=== PATIENT | female | born 1935 | race Caucasian/White ===

== ENCOUNTER 2017-06-29 12:21 | Inpatient (IN) | payer MEDICARE, OTHER ==
[2017-06-29] MEDS ORDERED: MAGNESIUM HYDROXIDE 2400 MG PO PRN (17:20)
[2017-06-29] MEDS ORDERED: MEDICATION INTERVENTION MC PRN (17:30)
[2017-06-29] MEDS ORDERED: MILK OF MAGNESIA 30 ML PO PRN (17:32)
[2017-06-29] MEDS: Glucophage 500 MG PO SCH (18:31)
--- NOTE | 2017-06-29 18:37 | PCM.HP ---
History of Present Illness - Chief Complaint Chief Complaint: deconditioning r/t TKR Date: 06/29/17 History of Present Illness: is a 81 year old female. who had TKA right knee 3 days ago at [facility] with Dr. Guerrier. They tried to D/C the catheter but she was not able to urinate so restarted catheter however the bladder scan only showed 125 mL of urine in the bladder it was not documented the residual after the catheter was placed. She has some chronic difficulty with urination and had a bladder sling in 2013. Sugars are generally fairly well controlled. She has not had BM since surgery pain medicine made her feel bad at [facility] PCP Dr. Perales - Review of Systems Constitutional: No Fever, No Chills Eyes: No Symptoms Ears, Nose, & Throat: No Symptoms Respiratory: No Cough, No Short Of Breath Cardiac: No Chest Pain, No Edema, No Syncope Abdominal/Gastrointestinal: No Abdominal Pain, No Nausea, No Vomiting, No Diarrhea Genitourinary Symptoms: No Flank Pain Musculoskeletal: Joint Pain, No Back Pain, No Neck Pain Skin: No Rash Neurological: No Dizziness, No Focal Weakness, No Sensory Changes Psychological: No Symptoms Endocrine: No Symptoms Hematologic/Lymphatic: No Symptoms Immunological/Allergic: No Symptoms Medications & Allergies Home Medications: Home Medication List Liraglutide [Victoza 2-Ryan] 1.8 mg SQ DAILY 02/16/14 [History Confirmed 06/29/17 ] Potassium Chloride 10 Meq Tab* [Klor Con 10 MEQ] 10 meq PO DAILY 02/16/14 [ History Confirmed 06/29/17] Acetaminophen [Pain Reliever] 650 mg PO Q4HPRN PRN 06/29/17 [History Confirmed 06/29/17] Ascorbic Acid 500 mg [Vitamin C 500 MG] 500 mg PO DAILY 06/29/17 [History Confirmed 06/29/17] Aspirin 325 mg PO DAILY 06/29/17 [History Confirmed 06/29/17] Atorvastatin Calcium [Lipitor] 10 mg PO HS 06/29/17 [History Confirmed 06/29/17] Ferrous Sulfate 325 mg PO BID 06/29/17 [History Confirmed 06/29/17] Folic Acid 1 mg PO DAILY 06/29/17 [History Confirmed 06/29/17] Hydrocodone Bit/Acetaminophen [Hydrocodon-Acetaminophen 5-325] 1 each PO [id number] PRN 06/29/17 [History Confirmed 06/29/17] Levothyroxine Sodium 25 Mcg [Synthroid 25 Mcg] 25 mcg PO DAILY 06/29/17 [ History Confirmed 06/29/17] Lisinopril 20 mg PO DAILY 06/29/17 [History Confirmed 06/29/17] Magnesium Hydroxide [Milk of Magnesia] 2,400 mg PO HSPRN PRN 06/29/17 [History Confirmed 06/29/17] Metformin HCl [Glucophage] 1,000 mg PO BID 06/29/17 [History Confirmed 06/29/17] Naproxen 375 mg PO BID 06/29/17 [History Confirmed 06/29/17] [place]-3 Fatty Acids/Fish Oil [Fish Oil 1,200 mg Softgel] 1 each PO TID 06/29/17 [History Confirmed 06/29/17] Sennosides/Docusate Sodium [Senna-Docusate Sodium Tablet] 2 each PO HS 06/29/17 [History Confirmed 06/29/17] Torsemide [Demadex] 10 mg PO DAILY 06/29/17 [History Confirmed 06/29/17] Allergies/Adverse Reactions: Allergies Allergy/AdvReac Type Severity Reaction Status Date / Time Penicillins Allergy Severe Hives Verified 06/29/17 18:35 cephalexin monohydrate Allergy Mild Nausea Verified 06/29/17 18:35 [From Keflex] ciprofloxacin [From Cipro] Allergy Mild Nausea Verified 06/29/17 18:35 erythromycin base Allergy Mild Nausea Verified 06/29/17 18:35 Sulfa (Sulfonamide Allergy Mild Nausea Verified 06/29/17 18:35 Antibiotics) - Past Medical History Past Medical History: Yes Neurological History: No Pertinent History ENT History: Cataracts Cardiac History: High Cholesterol, Hypertension Respiratory History: No Pertinent History Endocrine Medical History: Diabetes Type II, Hypothyroidism Musculoskelatal History: No Pertinent History GI Medical History: No Pertinent History History: No Pertinent History Pyscho-Social History: No Pertinent History Reproductive Disorders: No Pertinent History Comment: Anemia - Female History Are you now?: No - Past Surgical History Past Surgical History: Yes Neuro Surgical History: No Pertinent History Cardiac History: No Pertinent History Respiratory Surgery: No Pertinent History GI Surgical History: Cholecystectomy Genitourinary Surgical Hx: No Pertinent History Musculskeletal Surgical Hx: Joint Replacement (Right knee ) Female Surgical History: Hysterectomy (total) Other Surgical History: bladder sling - Social History Smoking Status: Former smoker (Quit at age 31) Exposure to second hand smoke: No Alcohol: None Drug Use: none Significant Family History: cancer, diabetes, other (Daughter with DVT during ; Sister breast cancer; Mother Melanoma; Father Diabetes) - Physical Exam Vital Signs: Vital Signs - 24 hr Temp Pulse Resp BP Pulse Ox 06/29/17 16:28 97.3 F 78 16 167/69 95 06/29/17 16:13 97.3 F 78 16 167/69 95 06/29/17 16:00 97.3 F 78 16 167/69 95 General Appearance: no apparent distress, alert Neurologic Exam: alert, oriented x 3, cooperative, normal mood/affect, nml cerebellar function, sensation nml, No motor deficits Eye Exam: PERRL/EOMI, eyes nml inspection Ears, Nose, Throat Exam: normal ENT inspection, pharynx normal, moist mucous membranes Neck Exam: normal inspection, non-tender, supple, full range of motion Respiratory Exam: normal breath sounds, lungs clear, No respiratory distress Cardiovascular Exam: regular rate/rhythm, normal heart sounds, normal peripheral pulses Gastrointestinal/Abdomen Exam: soft, normal bowel sounds, No tenderness, No mass Back Exam: normal inspection, normal range of motion, No CVA tenderness, No vertebral tenderness Extremity Exam: normal inspection, normal range of motion, pelvis stable, other (right knee mild swelling bandage in place clean and dry normal peripheral perfusion) Skin Exam: normal color, warm, dry, No rash Lymphatic Exam: No adenopathy Results - Labs Lab/Micro Results: 06/28/17: Creat 0.81 BUN 15; wbc 12.5; hgb 9.5; plt 279 Assessment/Plan (1) Total knee replacement status Current Visit: Yes Status: Acute Qualifiers: Laterality: right Qualified Code(s): Z96.651 - Presence of right artificial knee joint Assessment & Plan: continue PT as ordered she has great rehab potential doing well plan to rehab to home with her Code(s): Z96.659 - PRESENCE OF UNSPECIFIED ARTIFICIAL KNEE JOINT (2) Constipation Current Visit: Yes Status: Acute Assessment & Plan: use the docusate senna opiates using less now add increased laxative prn Code(s): K59.00 - CONSTIPATION, UNSPECIFIED (3) Postoperative urinary retention Current Visit: Yes Status: Acute Assessment & Plan: will try to get the bowels moving and try removing Montejo again possibly on Sunday for voiding trial she has appt with urology but not until 07/18 she had bladder sling in 2013 Code(s): N99.89 - OTH POSTPROCEDURAL COMPLICATIONS AND DISORDERS OF SYS; R33.8 - OTHER RETENTION OF URINE (4) Type 2 diabetes mellitus Current Visit: Yes Status: Chronic (5) Hypothyroid Current Visit: Yes Status: Chronic Code(s): E03.9 - HYPOTHYROIDISM, UNSPECIFIED (6) Hypertension Current Visit: Yes Status: Chronic Code(s): I10 - ESSENTIAL (PRIMARY) HYPERTENSION (7) Anemia Current Visit: Yes Status: Chronic Code(s): D64.9 - ANEMIA, UNSPECIFIED
[2017-06-29] MEDS: FISH OIL 1,000 MG CAPSULE PO SCH (21:56)
[2017-06-29] MEDS: Zocor 10MG PO SCH (21:56)
[2017-06-29] MEDS: FEOSOL 325 MG PO SCH (21:56)
[2017-06-29] MEDS: Senokot-S Tablet PO SCH (21:57)
[2017-06-29] MEDS ORDERED: OMEGA PO SCH (22:00)
[2017-06-29] MEDS ORDERED: FISH OIL PO SCH (22:00)
[2017-06-29] MEDS ORDERED: NON-FORMULARY ITEM (Metformin Hcl [Glucophage] 1,000 MG) PO SCH (22:00)
[2017-06-29] MEDS ORDERED: FATTY ACIDS PO SCH (22:00)
[2017-06-29] MEDS ORDERED: NON-FORMULARY ITEM (Atorvastatin Calcium [Lipitor] 10 MG) PO SCH (22:00)
[2017-06-30] MEDS: Glucophage 500 MG PO SCH ×2 (07:54→17:23)
[2017-06-30] MEDS: NAPROSYN 375 MG PO SCH ×2 (07:54→17:23)
[2017-06-30] MEDS: FISH OIL 1,000 MG CAPSULE PO SCH ×3 (09:48→22:27)
[2017-06-30] MEDS: SYNTHROID 25 MCG PO SCH (09:49)
[2017-06-30] MEDS: FEOSOL 325 MG PO SCH ×2 (09:49→22:27)
[2017-06-30] MEDS: Klor Con 10 MEQ PO SCH (09:49)
[2017-06-30] MEDS: FOLATE 1 MG PO SCH (09:49)
[2017-06-30] MEDS: Vitamin C 500 MG PO SCH (09:49)
[2017-06-30] MEDS: Zestril 20 MG PO SCH (09:49)
[2017-06-30] MEDS: DEMADEX 20 MG PO SCH (09:50)
[2017-06-30] MEDS ORDERED: NON-FORMULARY ITEM (Aspirin [Aspirin] 325 MG) PO SCH (10:00)
[2017-06-30] MEDS ORDERED: Aplisol ID SCH (10:00)
[2017-06-30] MEDS ORDERED: NON-FORMULARY ITEM (Torsemide [Demadex] 10 MG) PO SCH (10:00)
[2017-06-30] MEDS: Ecotrin 325 MG PO SCH (12:34)
[2017-06-30 13:19] LABS: Bilirubin NEGATIVE (NEGATIVE); Collection Type CATH; Glucose NEGATIVE (NEGATIVE); Leukocyte Esterase 1+ (NEGATIVE)
[2017-06-30 13:20] LABS: Blood 50 Ery/ul (0-5); COMPLETE URINE MICROSCOPIC? YES
[2017-06-30 13:43] LABS: ADD URINE CULTURE? YES (NO); Bacteria FEW /HPF (NEGATIVE); Epithelial Cells FEW /HPF (FEW)
[2017-06-30] MEDS: PATIENT OWN MEDICATION SQ SCH (17:25)
[2017-06-30] MEDS: NORCO 5/325 MG PO PRN (22:26)
[2017-06-30] MEDS: Zocor 10MG PO SCH (22:27)
[2017-06-30] MEDS: Senokot-S Tablet PO SCH (22:27)
[2017-07-01] MEDS: Glucophage 500 MG PO SCH ×2 (08:41→16:43)
[2017-07-01] MEDS: NAPROSYN 375 MG PO SCH ×2 (08:42→16:43)
[2017-07-01] MEDS: Zestril 20 MG PO SCH (10:21)
[2017-07-01] MEDS: SYNTHROID 25 MCG PO SCH (10:21)
[2017-07-01] MEDS: FOLATE 1 MG PO SCH (10:21)
[2017-07-01] MEDS: Ecotrin 325 MG PO SCH (10:21)
[2017-07-01] MEDS: Vitamin C 500 MG PO SCH (10:21)
[2017-07-01] MEDS: FEOSOL 325 MG PO SCH ×2 (10:21→21:22)
[2017-07-01] MEDS: Klor Con 10 MEQ PO SCH (10:21)
[2017-07-01] MEDS: DEMADEX 20 MG PO SCH (10:23)
[2017-07-01] MEDS: FISH OIL 1,000 MG CAPSULE PO SCH ×3 (10:24→21:22)
[2017-07-01] MEDS: PATIENT OWN MEDICATION SQ SCH (16:48)
[2017-07-01] MEDS: Zocor 10MG PO SCH (21:22)
[2017-07-01] MEDS: Senokot-S Tablet PO SCH (21:22)
[2017-07-02] MEDS: TYLENOL 325 MG PO PRN ×2 (04:47→13:08)
[2017-07-02] MEDS: NAPROSYN 375 MG PO SCH ×2 (08:09→17:10)
[2017-07-02] MEDS: Glucophage 500 MG PO SCH ×2 (08:09→17:10)
[2017-07-02] MEDS ORDERED: Desyrel 150 MG PO PRN (09:31)
[2017-07-02] MEDS: Zestril 20 MG PO SCH (09:52)
[2017-07-02] MEDS: FISH OIL 1,000 MG CAPSULE PO SCH ×2 (09:52→13:57)
[2017-07-02] MEDS: Ecotrin 325 MG PO SCH (09:52)
[2017-07-02] MEDS: Vitamin C 500 MG PO SCH (09:52)
[2017-07-02] MEDS: Klor Con 10 MEQ PO SCH (09:52)
[2017-07-02] MEDS: FEOSOL 325 MG PO SCH (09:53)
[2017-07-02] MEDS: FOLATE 1 MG PO SCH (09:53)
[2017-07-02] MEDS: SYNTHROID 25 MCG PO SCH (09:53)
[2017-07-02] MEDS: DEMADEX 20 MG PO SCH (09:53)
[2017-07-02] MEDS: ZOFRAN ODT 4 MG PO PRN (15:37)
[2017-07-02] MEDS: PATIENT OWN MEDICATION SQ SCH (17:12)
[2017-07-02] MEDS: Senokot-S Tablet PO SCH (21:06)
[2017-07-02] MEDS: Zocor 10MG PO SCH (21:06)
[2017-07-03] MEDS: NORCO 5/325 MG PO PRN ×2 (03:03→22:48)
[2017-07-03] MEDS: NAPROSYN 375 MG PO SCH ×2 (08:06→17:06)
[2017-07-03] MEDS: Glucophage 500 MG PO SCH ×2 (08:06→17:05)
[2017-07-03] MEDS: SYNTHROID 25 MCG PO SCH (10:44)
[2017-07-03] MEDS: Zestril 20 MG PO SCH (10:44)
[2017-07-03] MEDS: Klor Con 10 MEQ PO SCH (10:44)
[2017-07-03] MEDS: Vitamin C 500 MG PO SCH (10:45)
[2017-07-03] MEDS: Ecotrin 325 MG PO SCH (10:45)
[2017-07-03] MEDS: DEMADEX 20 MG PO SCH (10:46)
[2017-07-03] MEDS: PATIENT OWN MEDICATION SQ SCH (17:06)
[2017-07-03] MEDS: Senokot-S Tablet PO SCH (22:05)
[2017-07-03] MEDS: Zocor 10MG PO SCH (22:06)
[2017-07-04] MEDS: Glucophage 500 MG PO SCH ×2 (08:37→16:51)
[2017-07-04] MEDS: NAPROSYN 375 MG PO SCH ×2 (08:37→16:51)
[2017-07-04] MEDS: ZOFRAN ODT 4 MG PO PRN (09:01)
[2017-07-04] MEDS: SYNTHROID 25 MCG PO SCH (11:25)
[2017-07-04] MEDS: DEMADEX 20 MG PO SCH (11:25)
[2017-07-04] MEDS: Zestril 20 MG PO SCH (11:25)
[2017-07-04] MEDS: Ecotrin 325 MG PO SCH (11:28)
[2017-07-04] MEDS: Vitamin C 500 MG PO SCH (11:29)
[2017-07-04] MEDS: Klor Con 10 MEQ PO SCH (11:29)
[2017-07-04] MEDS: PATIENT OWN MEDICATION SQ SCH (17:38)
[2017-07-04] MEDS: Zocor 10MG PO SCH (21:13)
[2017-07-04] MEDS: Senokot-S Tablet PO SCH (21:15)
[2017-07-04] MEDS: Requip 0.5 MG PO SCH (21:16)
[2017-07-05] MEDS: Requip 0.5 MG PO SCH (02:16)
[2017-07-05] MEDS: ZOFRAN ODT 4 MG PO PRN (02:59)
[2017-07-05] MEDS: Glucophage 500 MG PO SCH ×2 (07:20→16:55)
[2017-07-05] MEDS: NAPROSYN 375 MG PO SCH ×2 (07:23→16:55)
[2017-07-05] MEDS: Klor Con 10 MEQ PO SCH (10:45)
[2017-07-05] MEDS: Ecotrin 325 MG PO SCH (10:45)
[2017-07-05] MEDS: DEMADEX 20 MG PO SCH (10:45)
[2017-07-05] MEDS: Vitamin C 500 MG PO SCH (10:46)
[2017-07-05] MEDS: Zestril 20 MG PO SCH (10:46)
[2017-07-05] MEDS: SYNTHROID 25 MCG PO SCH (10:46)
[2017-07-05] MEDS: PATIENT OWN MEDICATION SQ SCH (16:55)
[2017-07-05] MEDS: Zocor 10MG PO SCH (22:16)
[2017-07-05] MEDS: Senokot-S Tablet PO SCH (22:16)
[2017-07-06] MEDS: ZOFRAN ODT 4 MG PO PRN (04:09)
[2017-07-06 07:33] VITALS: BP 139/70; PULSE 78
[2017-07-06] MEDS: NAPROSYN 375 MG PO SCH (07:59)
[2017-07-06] MEDS: Zestril 20 MG PO SCH (08:03)
[2017-07-06] MEDS: DEMADEX 20 MG PO SCH (08:03)
[2017-07-06] MEDS: SYNTHROID 25 MCG PO SCH (08:03)
[2017-07-06] MEDS: Glucophage 500 MG PO SCH (08:03)
[2017-07-06] MEDS: Ecotrin 325 MG PO SCH (08:04)
[2017-07-06] MEDS: Klor Con 10 MEQ PO SCH (08:05)
[2017-07-06] MEDS: Vitamin C 500 MG PO SCH (08:05)
[2017-07-06 11:40] VITALS: O2SAT 98
--- NOTE | 2017-07-06 11:56 | PCM.DCORD ---
- Discharge Discharge Date: 07/06/17 Disposition: Home, Self-Care Condition: Stable Prescriptions: Continue Potassium Chloride 10 Meq Tab* [Klor Con 10 MEQ] 10 meq PO DAILY Liraglutide [Victoza 2-Ryan] 1.8 mg SQ DAILY [place]-3 Fatty Acids/Fish Oil [Fish Oil 1,200 mg Softgel] 1 each PO TID Naproxen 375 mg PO BID Metformin HCl [Glucophage] 1,000 mg PO BID Magnesium Hydroxide [Milk of Magnesia] 2,400 mg PO HSPRN PRN PRN Reason: Constipation Lisinopril 20 mg PO DAILY Levothyroxine Sodium 25 Mcg [Synthroid 25 Mcg] 25 mcg PO DAILY Hydrocodone Bit/Acetaminophen [Hydrocodon-Acetaminophen 5-325] 1 each PO [id number] PRN PRN Reason: Pain Folic Acid 1 mg PO DAILY Ferrous Sulfate 325 mg PO BID Sennosides/Docusate Sodium [Docusate Sodium-Senna Tablet] 2 each PO HS Atorvastatin Calcium [Lipitor] 10 mg PO HS Ascorbic Acid 500 mg [Vitamin C 500 MG] 500 mg PO DAILY Acetaminophen [Pain Reliever] 650 mg PO Q4HPRN PRN PRN Reason: pain/fever Torsemide [Demadex] 10 mg PO DAILY Aspirin EC 81 mg [Ecotrin 81 mg] 81 mg PO DAILY Instructions: Knee Replacement Additional Instructions: CONTINUE OUTPATIENT PHYSICAL THERAPY DIRECTED BY MATIAS GARCIA, PCas USE WALKER FOR AMBULATION Follow up with: JOCE GARIBAY [NON-STAFF PHY W/O PRIVILEGES] - 07/11/17 9:15 am HOLLY OSUNA NP [NON-STAFF PHY W/O PRIVILEGES] - 07/18/17 1:30 pm
[2017-07-10] MEDS ORDERED: Aplisol ID SCH (10:00)
--- NOTE | 2017-07-10 22:03 | PCM.DS ---
Discharge Summary Date of Admission: 06/29/17 15:53 Date of Discharge: 07/06/17 Admitting Physician: LENKA LLOYD Primary Care Provider: JUAN DUONG Allergies Allergies Penicillins Allergy (Severe, Verified 06/29/17 18:35) Hives cephalexin monohydrate [From Keflex] Allergy (Mild, Verified 06/29/17 18:35) Nausea nausea ciprofloxacin [From Cipro] Allergy (Mild, Verified 06/29/17 18:35) Nausea Tolerates levaquin without complications erythromycin base Allergy (Mild, Verified 06/29/17 18:35) Nausea nausea Sulfa (Sulfonamide Antibiotics) Allergy (Mild, Verified 06/29/17 18:35) Nausea nausea Hospital Summary - Hospital Course Hospital Course: She was admitted for rehab following total knee replacement by Dr. Guerrier. After this replacement she had difficulty voiding as she has since her bladder sling. SHe had a catheter on arrival and has f/u with urology. She under went bladder training while here and was able to d/c Montejo. SHe will keep her urology f/u. she had good results with physical therapy and will continue with outpatient physical therapy for the tka - Vitals & Intake/Output Vital Signs: Vital Signs Temperature 97.9 F 07/06/17 11:39 Pulse Rate 78 07/06/17 11:39 Respiratory Rate 16 07/06/17 11:39 Blood Pressure 139/70 07/06/17 11:39 O2 Sat by Pulse Oximetry 98 07/06/17 11:39 - Lab Micro Results-Entire Visit: Microbiology 06/30/17 11:30 - Final Urine, Catheterized NO GROWTH 06/29/17 17:00 Urine Culture - Final Urine, Indwelling Catheter <10K NORMAL SKIN JEN PROBABLE SKIN CONTAMINANT - Procedures and Test Procedures and Tests throughout Hospitalization: Therapy Orders & Screens 06/29/17 16:08 PT Eval & Treat ( Order) ROUTINE Evaluate: Yes Treat: Yes Reason for Eval:: Swingbed status Diagnosis: Deconditioning r/t right total knee Arthroplasty 06/29/17 16:27 OT Screen per Nursing Assess ONCE Comment: Protocol Order Physician Instructions: Greater than 3 points order OT Admission Screening Reason For Exam: Triggered on Admission Diagnosis: deconditioning r/t TKR Open Wound/Cellutlitis/Pressure Ulcers: No Acute Fx/ORIF/Change in wt bearing status: Yes Severe MUSCULOSKELETAL pain: No ADL Dysfunction: No Acute CVA w/Hemiparesis/Hemiplegia: No Decreased Functional Mobility/Strength: No Sprain/Strain: No Acute Post-op Mobility Dysfunction: No Total Points: 5 PT Screen per Nursing Assess ONCE Comment: Protocol Order Physician Instructions: Greater than 3 points order PT Admission Screenin Reason For Exam: Triggered on Admission Diagnosis: deconditioning r/t TKR Open Wound/Cellutlitis/Pressure Ulcers: No Acute Fx/ORIF/Change in wt bearing status: Yes Severe MUSCULOSKELETAL pain: No ADL Dysfunction: No Acute CVA w/Hemiparesis/Hemiplegia: No Decreased Functional Mobility/Strength: No Sprain/Strain: No Acute Post-op Mobility Dysfunction: No Total Points: 5 Final Diagnosis/Problem List - Final Discharge Diagnosis/Problem (1) Total knee replacement status Status: Acute (2) Constipation Status: Acute (3) Postoperative urinary retention Status: Acute (4) Type 2 diabetes mellitus Status: Chronic (5) Hypothyroid Status: Chronic (6) Hypertension Status: Chronic (7) Anemia Status: Chronic - Discharge Discharge Date: 07/06/17 Disposition: Home, Self-Care Condition: Stable Prescriptions: Continue Potassium Chloride 10 Meq Tab* [Klor Con 10 MEQ] 10 meq PO DAILY Liraglutide [Victoza 2-Ryan] 1.8 mg SQ DAILY [place]-3 Fatty Acids/Fish Oil [Fish Oil 1,200 mg Softgel] 1 each PO TID Naproxen 375 mg PO BID Metformin HCl [Glucophage] 1,000 mg PO BID Magnesium Hydroxide [Milk of Magnesia] 2,400 mg PO HSPRN PRN PRN Reason: Constipation Lisinopril 20 mg PO DAILY Levothyroxine Sodium 25 Mcg [Synthroid 25 Mcg] 25 mcg PO DAILY Hydrocodone Bit/Acetaminophen [Hydrocodon-Acetaminophen 5-325] 1 each PO [id number] PRN PRN Reason: Pain Folic Acid 1 mg PO DAILY Ferrous Sulfate 325 mg PO BID Sennosides/Docusate Sodium [Docusate Sodium-Senna Tablet] 2 each PO HS Atorvastatin Calcium [Lipitor] 10 mg PO HS Ascorbic Acid 500 mg [Vitamin C 500 MG] 500 mg PO DAILY Acetaminophen [Pain Reliever] 650 mg PO Q4HPRN PRN PRN Reason: pain/fever Torsemide [Demadex] 10 mg PO DAILY Aspirin EC 81 mg [Ecotrin 81 mg] 81 mg PO DAILY Instructions: Knee Replacement Additional Instructions: CONTINUE OUTPATIENT PHYSICAL THERAPY DIRECTED BY MATIAS GARCIA P.T. USE WALKER FOR AMBULATION Follow up with: JOCE GUERRIER [NON-STAFF PHY W/O PRIVILEGES] - 07/11/17 9:15 am HOLLY OSUNA NP [NON-STAFF PHY W/O PRIVILEGES] - 07/18/17 1:30 pm Forms: Discharge Instructions
== END 2017-07-06 12:40 | disposition home or self-care (01) | DRG 566 ==
LOC: MED SURG 15:53
PROVIDERS: ADMIT Family Medicine; ATTEND Family Medicine
DX: Z96.651 Presence of right artificial knee joint (principal); K59.00 Constipation, unspecified; E11.9 Type 2 diabetes mellitus without complications; E03.9 Hypothyroidism, unspecified; I10 Essential (primary) hypertension; D64.9 Anemia, unspecified; Z79.899 Other long term (current) drug therapy; Z79.84 Long term (current) use of oral hypoglycemic drugs; Z79.891 Long term (current) use of opiate analgesic
CPT/HCPCS: 36415; 81000; 82962; 83036; 87086; Q0162; 97110-GP; A9270-GY

== ENCOUNTER 2023-05-16 20:56 | Emergency (ER) | payer MEDICARE ==
[2023-05-16 21:48] VITALS: TEMP 98
[2023-05-16 22:09] VITALS: O2SAT 99
--- NOTE | 2023-05-16 23:38 | ERPHSYRPT ---
- History of Present Illness Time Seen by Provider: 05/16/23 21:35 Source: patient Exam Limitations: no limitations Patient Subjective Stated Complaint: pt states today she has been having pain behind her lt knee- tonight pain has increased and has been more difficult to w alk. pain increases with movement and weight bearing Triage Nursing Assessment: pt alert and oriented, answers questions approp. pt into room per wheelchair, transfered to stretcher per self, limping gait noted. respirations nonlabored. skin warm and dry. 2+ pitting edema to bilat lower ext. pedal pulses and cap refill wnl Physician History: Patient is an 87-year-old white female who presents with pain in the left leg particularly in the posterior knee area this been present for several days but over the last 24 hours is gotten much worse its very sharp pain when she is moving or trying to bear weight. She has had no known injury. She is concerned about the possibility of a blood clot. Method of Injury: other Occurred: yesterday Quality: sharpness, throbbing Severity of Pain-Max: moderate Severity of Pain-Current: moderate Lower Extremities Pain: knee: left Modifying Factors: Improves With: movement, other (weightbearing) Associated Symptoms: other (Hurts to bear weight) Allergies/Adverse Reactions: Penicillins Allergy (Severe, Verified 05/16/23 21:41) Hives cephalexin monohydrate [From Keflex] Allergy (Mild, Verified 05/16/23 21:41) Nausea nausea ciprofloxacin [From Cipro] Allergy (Mild, Verified 05/16/23 21:41) Nausea Tolerates levaquin without complications erythromycin base Allergy (Mild, Verified 05/16/23 21:41) Nausea nausea Sulfa (Sulfonamide Antibiotics) Allergy (Mild, Verified 05/16/23 21:41) Nausea nausea Home Medications: Liraglutide [Victoza 2-Ryan] 1.8 mg SQ DAILY 02/16/14 [History] Potassium Chloride Tab* [Klor Con] 10 meq PO DAILY 02/16/14 [History] Acetaminophen [Pain Reliever] 650 mg PO Q4HPRN PRN 06/29/17 [History] Ascorbic Acid 500 mg [Vitamin C 500 MG] 500 mg PO DAILY 06/29/17 [History] Atorvastatin Calcium [Lipitor] 10 mg PO HS 06/29/17 [History] Ferrous Sulfate 325 mg PO BID 06/29/17 [History] Folic Acid 1 mg PO DAILY 06/29/17 [History] Hydrocodone/Acetaminophen [Hydrocodon-Acetaminophen 5-325] 1 each PO [id number] PRN 06/29/17 [History] Levothyroxine Sodium 25 Mcg [Synthroid 25 Mcg] 25 mcg PO DAILY 06/29/17 [H istory] Magnesium Hydroxide [Milk of Magnesia] 2,400 mg PO HSPRN PRN 06/29/17 [History] Metformin HCl [Glucophage] 1,000 mg PO BID 06/29/17 [History] Naproxen 375 mg PO BID 06/29/17 [History] [place]-3 Fatty Acids/Fish Oil [Fish Oil 1,200 mg Softgel] 1 each PO TID 06/29/17 [History] Sennosides/Docusate Sodium [Docusate Sodium-Senna Tablet] 2 each PO HS 06/29/17 [History] Torsemide [Demadex] 10 mg PO DAILY 06/29/17 [History] lisinopriL [Lisinopril] 20 mg PO DAILY 06/29/17 [History] Aspirin EC 81 mg [Ecotrin 81 mg] 81 mg PO DAILY 06/30/17 [History] Hx Tetanus, Diphtheria Vaccination/Date Given: Yes Hx Influenza Vaccination/Date Given: Yes Hx Pneumococcal Vaccination/Date Given: Yes Immunizations Up to Date: Yes Travel Risk - International Travel Have you traveled outside of the country in past 3 weeks: No - Coronavirus Screening Are you exhibiting any of the following symptoms?: No Close contact with a COVID-19 positive Pt in past 14-21 Days: No - Vaccine Status Have you recieved a Covid-19 vaccination: Yes Framing Specialist: Moderna - Vaccination Dates Date of 2cond Vaccination (if applicable): 2020 - Review of Systems Constitutional: No Fever, No Chills Eyes: No Symptoms Ears, Nose, & Throat: No Symptoms Respiratory: No Cough, No Dyspnea Cardiac: No Chest Pain, No Edema, No Syncope Abdominal/Gastrointestinal: No Abdominal Pain, No Nausea, No Vomiting, No Diarrhea Genitourinary Symptoms: No Dysuria Musculoskeletal: Joint Pain, No Back Pain, No Neck Pain Skin: No Rash Neurological: No Dizziness, No Focal Weakness, No Sensory Changes Psychological: No Symptoms Endocrine: No Symptoms All Other Systems: Reviewed and Negative - Past Medical History Pertinent Past Medical History: Yes Neurological History: Peripheral Neuropathy ENT History: Cataracts Cardiac History: High Cholesterol, Hypertension Respiratory History: No Pertinent History Endocrine Medical History: Diabetes Type II Musculoskeletal History: Arthritis GI Medical History: No Pertinent History History: No Pertinent History Psycho-Social History: No Pertinent History Female Reproductive Disorders: No Pertinent History Other Medical History: Anemia, back pain- arthritis - Past Surgical History Past Surgical History: Yes Neuro Surgical History: No Pertinent History Cardiac: No Pertinent History Respiratory: No Pertinent History Gastrointestinal: Cholecystectomy Genitourinary: No Pertinent History Musculoskeletal: Joint Replacement Female Surgical History: Hysterectomy Other Surgical History: bladder sling, tot rt knee - Social History Smoking Status: Former smoker Exposure to second hand smoke: No Drug Use: none Patient Lives Alone: No Significant Family History: cancer, diabetes, other (Daughter with DVT during ; Sister breast cancer; Mother Melanoma; Father Diabetes) - Nursing Vital Signs Nursing Vital Signs: Initial Vital Signs Temperature 98.0 F 05/16/23 21:31 Pulse Rate 71 05/16/23 21:31 Respiratory Rate 16 05/16/23 21:31 Blood Pressure 166/56 05/16/23 21:31 O2 Sat by Pulse Oximetry 97 05/16/23 21:31 Pain Scale Pain Intensity 5 - Physical Exam General Appearance: mild distress, alert Eyes, Ears, Nose, Throat Exam: moist mucous membranes Neck Exam: non-tender, supple Cardiovascular/Respiratory Exam: chest non-tender, normal breath sounds, regular rate/rhythm, no respiratory distress Gastrointestinal/Abdominal Exam: non-tender, guarding Back Exam: normal inspection, No vertebral tenderness Hips Exam: bilateral: non-tender, normal inspection, normal range of motion Legs Exam: bilateral leg: non-tender, normal inspection, normal range of motion Knees Exam: left knee: pain, soft tissue tenderness, swelling Ankle Exam: bilateral ankle: non-tender, normal inspection, normal range of motion Foot Exam: bilateral foot: non-tender, normal inspection, normal range of motion Neuro/Tendon Exam: normal sensation, normal motor functions Mental Status Exam: alert, oriented x 3, cooperative Skin Exam: normal color, warm, dry SpO2 Interpretation: normal SpO2: 99 O2 Delivery: Room Air - Course Nursing assessment & vital signs reviewed: Yes - Radiology Exams Left Knee X-ray Interpretation: Interpreted by me (Degenerative changes) - Radiology Ultrasound Exam Left Venous Lower Extremity Ultrasound: Other (Reviewed by me. Ultrasound shows no DVT but does show a 4 to 5 cm Foster's cyst.) Ordered Tests: Active Orders 24 hr Category Date Time Status KNEE (3 VIEWS) Stat Exams 05/16/23 22:13 Taken VENOUS UNILAT/LIMITED EXTREMIT [US] Stat Exams 05/16/23 00:07 Taken D-DIMER QUANTITATIVE Stat Lab 05/16/23 21:55 Completed SED RATE [Erythrocyte Sedimentation Rate] Stat Lab 05/16/23 21:55 Completed Uric Acid Stat Lab 05/16/23 21:55 Completed Lab/Rad Data: Laboratory Results 05/16/23 05/16/23 05/16/23 Range/Units 21:55 21:55 21:55 ESR 41 H (0-20) mm/hr D-Dimer 0.92 H* (0.0-0.50) mg/L Uric Acid 8.3 H (2.6-6.0) mg/dL - Progress Progress: unchanged Medical Desision Making - Independent Historian Additional History obtained from: Child - Diagnostic Testing Diagnostic test were ordered, analyzed, and reviewed by me: Yes Radiological Interpretation: Reviewed by me - Risk of complications Low Risk: Low risk of morbidity from additional dx testing or treatment - Departure Departure Disposition: Home Clinical Impression: Foster's cyst of knee Condition: Stable Critical Care Time: No Referrals: TORSTEN VILLASEÑOR MD [Primary Care Provider] - Follow up/PCP as directed Instructions: Foster's Cyst (DC) Prescriptions: Prednisone 10 mg [Deltasone 10 mg] 10 mg PO TID 4 Days #12 tablet
[2023-05-16 23:45] VITALS: BP 113/56; PULSE 70; RESP 17
--- NOTE | 2023-05-17 08:50 | XRAY ---
Indication: Pain. No known injury. Comparison: None 3 view left knee demonstrates osteopenia, mild/moderate tricompartmental degenerative changes greatest patellofemoral compartment, and tiny anterior knee joint heterotopic ossifications. No other bony, articular, or soft tissue abnormalities.
--- NOTE | 2023-05-17 08:52 | XRAY ---
Indication: Pain. Elevated d-dimer. Two-dimensional sonogram and color Doppler imaging of the major venous vessels of the left leg performed. Comparison: None No thrombus seen in the examined deep venous vessels of the left leg including greater saphenous vein. Veins demonstrate normal compressibility. Venous waveforms are normal with and without augmentation. Incidental 4.5 x 0.8 x 2.3 cm Foster's cyst. Impression: Left leg negative for DVT. Incidental Foster's cyst. Comment: Preliminary report was given.
== END 2023-05-17 00:37 | disposition home or self-care (01) ==
LOC: ED 20:56
DX: M71.22 Synovial cyst of popliteal space [Baker], left knee (principal); M79.605 Pain in left leg; E78.5 Hyperlipidemia, unspecified; I10 Essential (primary) hypertension; E11.42 Type 2 diabetes mellitus with diabetic polyneuropathy; Z79.52 Long term (current) use of systemic steroids; Z79.85 Long-term (current) use of injectable non-insulin antidiabetic drugs; Z79.84 Long term (current) use of oral hypoglycemic drugs; Z79.899 Other long term (current) drug therapy
CPT/HCPCS: 36415; 73562; 84550; 85379; 85652; 93971; 99283

== ENCOUNTER 2023-05-23 13:32 | Emergency (ER) | payer MEDICARE ==
[2023-05-23] MEDS ORDERED: XYLOCAINE 1% HCL 20 ML MDV IJ ONE (13:33)
--- NOTE | 2023-05-23 13:40 | ERPHSYRPT ---
- History of Present Illness Time Seen by Provider: 05/23/23 13:40 Source: patient, family Exam Limitations: no limitations Physician History: This is an 87-year-old white female patient who woke up this morning with weakness. It was approximately 9 AM. She took her blood pressure and she states it was elevated. She does not recall the value. Patient states that she did not take her morning meds till approximately noon today. She has a slight headache as well. Patient has a history of hypertension, diabetes, hypothyroidism, hyperlipidemia, chronic anemia and arthritis. Patient is in the room and provided additional, independent medical history. She denies chest pain. She denies shortness of breath. Overall, she states she just feels weak and does not feel well Timing/Duration: today Severity: mild (The moderate) Modifying Factors: Improves With: nothing Associated Symptoms: weakness, No nausea, No vomiting, No shortness of breath, No chest pain, No headaches Allergies/Adverse Reactions: Penicillins Allergy (Severe, Verified 05/23/23 13:41) Hives cephalexin monohydrate [From Keflex] Allergy (Mild, Verified 05/23/23 13:41) Nausea nausea ciprofloxacin [From Cipro] Allergy (Mild, Verified 05/23/23 13:41) Nausea Tolerates levaquin without complications erythromycin base Allergy (Mild, Verified 05/23/23 13:41) Nausea nausea Sulfa (Sulfonamide Antibiotics) Allergy (Mild, Verified 05/23/23 13:41) Nausea nausea Home Medications: Liraglutide [Victoza 2-Ryan] 1.8 mg SQ DAILY 02/16/14 [History] Potassium Chloride Tab* [Klor Con] 10 meq PO DAILY 02/16/14 [History] Acetaminophen [Pain Reliever] 650 mg PO Q4HPRN PRN 06/29/17 [History] Ascorbic Acid 500 mg [Vitamin C 500 MG] 500 mg PO DAILY 06/29/17 [History] Atorvastatin Calcium [Lipitor] 10 mg PO HS 06/29/17 [History] Ferrous Sulfate 325 mg PO BID 06/29/17 [History] Folic Acid 1 mg PO DAILY 06/29/17 [History] Hydrocodone/Acetaminophen [Hydrocodon-Acetaminophen 5-325] 1 each PO [id number] PRN 06/29/17 [History] Levothyroxine Sodium 25 Mcg [Synthroid 25 Mcg] 25 mcg PO DAILY 06/29/17 [History] Magnesium Hydroxide [Milk of Magnesia] 2,400 mg PO HSPRN PRN 06/29/17 [History] Metformin HCl [Glucophage] 1,000 mg PO BID 06/29/17 [History] Naproxen 375 mg PO BID 06/29/17 [History] [place]-3 Fatty Acids/Fish Oil [Fish Oil 1,200 mg Softgel] 1 each PO TID 06/29/17 [History] Sennosides/Docusate Sodium [Docusate Sodium-Senna Tablet] 2 each PO HS 06/29/17 [History] Torsemide [Demadex] 10 mg PO DAILY 06/29/17 [History] lisinopriL [Lisinopril] 20 mg PO DAILY 06/29/17 [History] Aspirin EC 81 mg [Ecotrin 81 mg] 81 mg PO DAILY 06/30/17 [History] Hx Tetanus, Diphtheria Vaccination/Date Given: Yes Hx Influenza Vaccination/Date Given: Yes Hx Pneumococcal Vaccination/Date Given: Yes Travel Risk - International Travel Have you traveled outside of the country in past 3 weeks: No - Coronavirus Screening Are you exhibiting any of the following symptoms?: Yes Symptoms: Headaches/Body Aches/Fatigue Close contact with a COVID-19 positive Pt in past 14-21 Days: No - Vaccine Status Have you recieved a Covid-19 vaccination: Yes Equal Employment Opportunity Officer: Moderna - Vaccination Dates Date of 2cond Vaccination (if applicable): 2020 - Review of Systems Constitutional: Weakness Eyes: No Symptoms Ears, Nose, & Throat: No Symptoms Respiratory: No Symptoms Cardiac: No Symptoms Abdominal/Gastrointestinal: No Symptoms Genitourinary Symptoms: No Symptoms Musculoskeletal: No Symptoms Skin: No Symptoms Neurological: Headache Psychological: No Symptoms Endocrine: No Symptoms Hematologic/Lymphatic: No Symptoms Immunological/Allergic: No Symptoms All Other Systems: Reviewed and Negative - Past Medical History Pertinent Past Medical History: Yes Neurological History: Peripheral Neuropathy ENT History: Cataracts Cardiac History: High Cholesterol, Hypertension Respiratory History: No Pertinent History Endocrine Medical History: Diabetes Type II Musculoskeletal History: Arthritis GI Medical History: No Pertinent History History: No Pertinent History Psycho-Social History: No Pertinent History Female Reproductive Disorders: No Pertinent History Other Medical History: Anemia, back pain- arthritis - Past Surgical History Past Surgical History: Yes Neuro Surgical History: No Pertinent History Cardiac: No Pertinent History Respiratory: No Pertinent History Gastrointestinal: Cholecystectomy Genitourinary: No Pertinent History Musculoskeletal: Joint Replacement Female Surgical History: Hysterectomy Other Surgical History: bladder sling, tot rt knee - Social History Smoking Status: Former smoker Exposure to second hand smoke: No Drug Use: none Patient Lives Alone: No Significant Family History: cancer, diabetes, other (Daughter with DVT during ; Sister breast cancer; Mother Melanoma; Father Diabetes) - Nursing Vital Signs Nursing Vital Signs: Initial Vital Signs Temperature 97.4 F 05/23/23 13:43 Pulse Rate 76 05/23/23 13:43 Respiratory Rate 18 05/23/23 13:43 Blood Pressure 189/76 05/23/23 13:43 O2 Sat by Pulse Oximetry 99 05/23/23 13:43 Pain Scale Pain Intensity 0 - Physical Exam General Appearance: no apparent distress, alert, anxiety Eye Exam: PERRL/EOMI, eyes nml inspection Ears, Nose, Throat Exam: normal ENT inspection, moist mucous membranes Neck Exam: normal inspection, non-tender, supple, full range of motion Respiratory Exam: normal breath sounds, lungs clear, airway intact, No chest tenderness, No respiratory distress Cardiovascular Exam: regular rate/rhythm, normal heart sounds, normal peripheral pulses Gastrointestinal/Abdomen Exam: soft, normal bowel sounds, No tenderness Pelvic Exam: not done Rectal Exam: not done Back Exam: normal inspection, normal range of motion, No CVA tenderness, No vertebral tenderness Extremity Exam: normal inspection, normal range of motion, pelvis stable Neurologic Exam: alert, oriented x 3, cooperative, gunnery/ordnance officer II-XII nml as tested, normal mood/affect Skin Exam: normal color, warm, dry Lymphatic Exam: No adenopathy SpO2 Interpretation: normal O2 Delivery: Room Air - Course Nursing assessment & vital signs reviewed: Yes EKG Interpreted by Me: RATE (72), NORMAL AXIS (Incomplete), NORMAL INTERVALS, Left Bundle Branch Block, NORMAL ST-T, Other (No acute ischemic changes on today's twelve-lead EKG.) Ordered Tests: Active Orders 24 hr Category Date Time Status Air Traffic Control Supervisor STAT Care 05/23/23 14:00 Active EKG-ER Only STAT Care 05/23/23 13:59 Active IV Insertion STAT Care 05/23/23 13:59 Active Pulse Oximetry (ED) STAT Care 05/23/23 13:59 Active HEAD WITHOUT CONTRAST [CT] Stat Exams 05/23/23 14:01 Completed CBC W DIFF Stat Lab 05/23/23 14:20 Completed CMP Stat Lab 05/23/23 14:20 Completed CULTURE,URINE Stat Lab 05/23/23 16:05 Received MAGNESIUM Stat Lab 05/23/23 14:20 Completed NT PRO BNPII Stat Lab 05/23/23 14:20 Completed T4 (Thyroxine) Stat Lab 05/23/23 14:20 Completed TROPONIN Q4H Lab 05/23/23 14:20 Completed TROPONIN Q4H Lab 05/23/23 18:00 Ordered TROPONIN Q4H Lab 05/23/23 22:00 Ordered TSH, 3RD Generation Stat Lab 05/23/23 14:20 Completed UA W/RFX UR CULTURE Stat Lab 05/23/23 16:05 Completed Medication Summary Generic Name Dose Route Start Last Admin Trade Name Freq PRN Reason Stop Dose Admin Levofloxacin/Dextrose 500 mg in 100 mls @ 100 mls/hr 05/23/23 17:17 Levofloxacin 500mg/100ml D5w IV 05/23/23 18:16 STAT STA Discontinued Medications Generic Name Dose Route Start Last Admin Trade Name Freq PRN Reason Stop Dose Admin Sodium Chloride 500 mls @ 500 mls/hr 05/23/23 15:05 05/23/23 15:06 Sodium Chloride 0.9% 500 Ml IV 05/23/23 16:04 Not Given .Q1H ONE Lab/Rad Data: Laboratory Result Diagrams 05/23/23 14:20 05/23/23 14:20 Laboratory Results 05/23/23 05/23/23 05/23/23 Range/Units 16:05 15:20 14:20 WBC (4.0-10.5) x10^3/uL RBC (4.1-5.4) x10^6/uL Hgb (12.0-16.0) g/dL Hct (35-47) % MCV (78-100) fL MCH (26-32) pg MCHC (32-36) g/dL RDW (11.5-14.0) % Plt Count (150-450) x10^3/uL MPV (7.5-11.0) fL Gran % (36.0-66.0) % Immature Gran % (Auto) (0.00-0.4) % Nucleat RBC Rel Count (0.00-0.1) % Eos # (Auto) (0-0.5) x10^3/uL Immature Gran # (Auto) (0.00-0.03) x10^3u/L Absolute Lymphs (auto) (1.0-4.6) x10^3/uL Absolute Monos (auto) (0.0-1.3) x10^3/uL Absolute Nucleated RBC (0.00-0.01) x10^3u/L Lymphocytes % (24.0-44.0) % Monocytes % (0.0-12.0) % Eosinophils % (0.00-5.0) % Basophils % (0.0-0.4) % Absolute Granulocytes (1.4-6.9) x10^3/uL Basophils # (0-0.4) x10^3/uL Sodium (137-145) mmol/L Potassium (3.5-5.1) mmol/L Chloride (98-107) mmol/L Carbon Dioxide (22-30) mmol/L Anion Gap (5-15) MEQ/L BUN (7-17) mg/dL Creatinine (0.52-1.04) mg/dL Estimated GFR ML/MIN Glucose (74-106) mg/dL Calcium (8.4-10.2) mg/dL Magnesium (1.6-2.3) mg/dL Total Bilirubin (0.2-1.3) mg/dL AST (14-36) U/L ALT (0-35) U/L Alkaline Phosphatase (38-126) U/L Troponin I (0.000-0.034) ng/mL NT-Pro-B Natriuret Pep (<300) pg/mL Serum Total Protein (6.3-8.2) g/dL Albumin (3.5-5.0) g/dL Thyroxine (T4) 7.55 (5.53-10.96) ug/dL TSH 3rd Generation 2.970 (0.47-4.68) mIU/L Urine Color Yellow (Yellow) Urine Appearance Turbid A (Clear) Urine pH 7.5 (4.6-8.0) Ur Specific [place] 1.010 (1.005-1.030) Urine Protein Trace A (Negative) Urine Glucose (UA) Negative (Negative) mg/dL Urine Ketones Negative (Negative) Urine Blood Small A (Negative) Urine Nitrite Negative (Negative) Urine Bilirubin Negative (Negative) Urine Urobilinogen 1.0 A (0.2) mg/dL Ur Leukocyte Esterase Large A (Negative) U Hyaline Cast (Auto) NONE SEEN (0-2) /LPF Urine Microscopic RBC 0-2 (0-5) /HPF Urine Microscopic WBC >100 A (0-5) /HPF Ur Epithelial Cells None Seen (None Seen) /HPF Urine Bacteria Many A (None Seen) /HPF Urine Culture Reflexed YES (NO) Influenza Type A Ag NEGATIVE (NEGATIVE) Influenza Type B Ag NEGATIVE (NEGATIVE) RSV (PCR) NEGATIVE (NEGATIVE) SARS-CoV-2 (PCR) NEGATIVE (NEGATIVE) 05/23/23 05/23/23 05/23/23 Range/Units 14:20 14:20 14:20 WBC 12.1 H (4.0-10.5) x10^3/uL RBC 4.28 (4.1-5.4) x10^6/uL Hgb 13.4 (12.0-16.0) g/dL Hct 40.5 (35-47) % MCV 94.6 (78-100) fL MCH 31.3 (26-32) pg MCHC 33.1 (32-36) g/dL RDW 12.2 (11.5-14.0) % Plt Count 329 (150-450) x10^3/uL MPV 11.2 H (7.5-11.0) fL Gran % 53.4 (36.0-66.0) % Immature Gran % (Auto) 0.3 (0.00-0.4) % Nucleat RBC Rel Count 0.0 (0.00-0.1) % Eos # (Auto) 0.16 (0-0.5) x10^3/uL Immature Gran # (Auto) 0.04 H (0.00-0.03) x10^3u/L Absolute Lymphs (auto) 4.40 (1.0-4.6) x10^3/uL Absolute Monos (auto) 1.03 (0.0-1.3) x10^3/uL Absolute Nucleated RBC 0.00 (0.00-0.01) x10^3u/L Lymphocytes % 36.3 (24.0-44.0) % Monocytes % 8.5 (0.0-12.0) % Eosinophils % 1.3 (0.00-5.0) % Basophils % 0.2 (0.0-0.4) % Absolute Granulocytes 6.47 (1.4-6.9) x10^3/uL Basophils # 0.03 (0-0.4) x10^3/uL Sodium 135 L (137-145) mmol/L Potassium 4.6 (3.5-5.1) mmol/L Chloride 99 (98-107) mmol/L Carbon Dioxide 27 (22-30) mmol/L Anion Gap 14.6 (5-15) MEQ/L BUN 35 H (7-17) mg/dL Creatinine 1.37 H (0.52-1.04) mg/dL Estimated GFR 38.9 ML/MIN Glucose 158 H (74-106) mg/dL Calcium 9.5 (8.4-10.2) mg/dL Magnesium 2.0 (1.6-2.3) mg/dL Total Bilirubin 0.70 (0.2-1.3) mg/dL AST 25 (14-36) U/L ALT 18 (0-35) U/L Alkaline Phosphatase 93 (38-126) U/L Troponin I < 0.012 (0.000-0.034) ng/mL NT-Pro-B Natriuret Pep 403 (<300) pg/mL Serum Total Protein 7.5 (6.3-8.2) g/dL Albumin 4.1 (3.5-5.0) g/dL Thyroxine (T4) (5.53-10.96) ug/dL TSH 3rd Generation (0.47-4.68) mIU/L Urine Color (Yellow) Urine Appearance (Clear) Urine pH (4.6-8.0) Ur Specific [place] (1.005-1.030) Urine Protein (Negative) Urine Glucose (UA) (Negative) mg/dL Urine Ketones (Negative) Urine Blood (Negative) Urine Nitrite (Negative) Urine Bilirubin (Negative) Urine Urobilinogen (0.2) mg/dL Ur Leukocyte Esterase (Negative) U Hyaline Cast (Auto) (0-2) /LPF Urine Microscopic RBC (0-5) /HPF Urine Microscopic WBC (0-5) /HPF Ur Epithelial Cells (None Seen) /HPF Urine Bacteria (None Seen) /HPF Urine Culture Reflexed (NO) Influenza Type A Ag (NEGATIVE) Influenza Type B Ag (NEGATIVE) RSV (PCR) (NEGATIVE) SARS-CoV-2 (PCR) (NEGATIVE) - Progress Progress: improved Progress Note: 05/23/23 16:59 This patient medical issues 1 of moderate complexity. Level complexity in the work-up performed is based on review of the patient's past medical history, revi ew the patient's medication list, review the patient's drug allergy list, history of present illness and physical findings on examination. This patient's work-up includes placement of an intravenous line, twelve-lead EKG, troponin level, urinalysis, CBC, CMP and CT scan of the head without contrast. I am awaiting the results of the urinalysis. The remainder of the work-up does not show an acute, emergent medical issue. The CT scan of the head without contrast was interpreted by the radiologist and I reviewed the impression. It is a normal CT scan of the head without contrast. 05/23/23 17:19 Evaluation of the work-up shows a significant urinary tract infection which could account for the patient's symptoms. Patient states as does her chart that the patient can take Levaquin without complications. Counseled pt/family regarding: lab results, diagnosis, need for follow-up, rad results Medical Desision Making - Independent Historian Additional History obtained from: Spouse - Diagnostic Testing Diagnostic test were ordered, analyzed, and reviewed by me: Yes Radiological Interpretation: Reviewed by me, Teleradiologist Report - Risk of complications The pt has a mod risk of morbidity or mortality based on: Need for prescription drug management - Departure Departure Disposition: Home Clinical Impression: Weakness, UTI (urinary tract infection) Condition: Stable Critical Care Time: No Referrals: TORSTEN VILLASEÑOR MD [Primary Care Provider] - Follow up/PCP as directed Additional Instructions: Drink plenty of fluids. Take your antibiotics and other medications as prescribed. Call your primary care provider tomorrow, 05/24/2023, to make arrangements for follow-up appointment for further evaluation and management. Prescriptions: Levofloxacin [Levaquin 500 MG Tablet] 500 mg PO DAILY #7 tablet
[2023-05-23 13:58] VITALS: TEMP 97.4
[2023-05-23 14:22] LABS: Absolute Neutrophil Ct (ANC) 6.47 x10^3/uL (1.4-6.9); BASOPHIL % 0.2 % (0.0-0.4); Basophil (Absolute #) 0.03 x10^3/uL (0-0.4); Eosinophil % 1.3 % (0.00-5.0); Eosinophil (Absolute #) 0.16 x10^3/uL (0-0.5); Hematocrit 40.5 % (35-47); Hemoglobin 13.4 g/dL (12.0-16.0); IMMATURE GRAN # 0.04 x10^3u/L (0.00-0.03); IMMATURE GRAN % 0.3 % (0.00-0.4); Lymphocytes % 36.3 % (24.0-44.0); Mean Cell Volume 94.6 fL (78-100); Mean Corpuscular Hemoglobin 31.3 pg (26-32); Mean Corpuscular Hgb Concent. 33.1 g/dL (32-36); Mean Platelet Volume 11.2 fL (7.5-11.0); Monocyte (Absolute #) 1.03 x10^3/uL (0.0-1.3); Monocytes % 8.5 % (0.0-12.0); Neutrophil % 53.4 % (36.0-66.0); Platelet Count 329 x10^3/uL (150-450); Red Blood Count 4.28 x10^6/uL (4.1-5.4); Red Cell Distribution Width 12.2 % (11.5-14.0); White Blood Count 12.1 x10^3/uL (4.0-10.5)
[2023-05-23 14:37] LABS: ALBUMIN 4.1 g/dL (3.5-5.0); ANION GAP 14.6 MEQ/L (5-15); BILIRUBIN,TOTAL 0.7 mg/dL (0.2-1.3); Calcium 9.5 mg/dL (8.4-10.2); Creatinine 1 1.37 mg/dL (0.52-1.04); EST GLOMERULAR FILTRATION RATE 38.9 ML/MIN; Potassium 4.6 mmol/L (3.5-5.1); Total Protein 7.5 g/dL (6.3-8.2)
[2023-05-23 14:49] LABS: NT PRO BNPII 403 pg/mL (<300); TROPONIN < 0.012 ng/mL (0.000-0.034)
[2023-05-23] MEDS ORDERED: Sodium Chloride 0.9% 500 ML 500 ML IV ONE (15:05)
--- NOTE | 2023-05-23 15:07 | XRAY ---
Indication: Headache and dizziness. Hypertension. Multiple contiguous axial images obtained through the head without contrast. Comparison: None Normal appearing brain parenchyma, ventricles, and bony calvarium. Visualized paranasal sinuses and mastoid air cells are clear. Impression: Normal CT head without contrast exam.
[2023-05-23 15:12] LABS: T4 (Thyroxine) 7.55 ug/dL (5.53-10.96); TSH, 3RD Generation 2.97 mIU/L (0.47-4.68)
[2023-05-23 16:03] LABS: INFLUENZA A NEGATIVE (NEGATIVE); INFLUENZA B NEGATIVE (NEGATIVE); RESPIRATORY SYNCTIAL VIRUS NEGATIVE (NEGATIVE); SARS-CoV-2 Xpert Express NEGATIVE (NEGATIVE)
[2023-05-23 17:01] LABS: ADD URINE CULTURE? YES (NO); Appearance Turbid (Clear); Bacteria Many /HPF (None Seen); Bilirubin Negative (Negative); Blood Small (Negative); Epithelial Cells None Seen /HPF (None Seen); Glucose, Urine Negative (Negative); Hyaline Casts NONE SEEN /LPF (0-2); Ketones Negative (Negative); Leukocyte Esterase Large (Negative); Nitrite Negative (Negative); Ph 7.5 (4.6-8.0); Protein,Urine Dip Trace (Negative); RBC 0-2 /HPF (0-5); WBC >100 /HPF (0-5)
[2023-05-23] MEDS ORDERED: Levofloxacin 500MG/100ML D5W 500 MG/100 ML BAG IV STA (17:17)
[2023-05-23] MEDS ORDERED: Levofloxacin 500MG/100ML D5W 500 MG/100 ML BAG IV ONE (17:29)
[2023-05-23] MEDS ORDERED: Compazine 5 MG PO ONE (17:48)
[2023-05-23] MEDS ORDERED: Compazine 10 MG/2 ML IV ONE (17:51)
[2023-05-23] MEDS ORDERED: Compazine 10 MG/2 ML ONE (17:53)
[2023-05-23] MEDS ORDERED: BENADRYL 50 MG/ML IV ONE ×2 (18:10→18:12)
[2023-05-23] MEDS ORDERED: BENADRYL 50 MG/ML ONE (18:11)
[2023-05-23] MEDS ORDERED: Rocephin 1000 MG INJ IM ONE (18:11)
[2023-05-23] MEDS ORDERED: Rocephin 1000 MG INJ ONE (18:26)
[2023-05-23 18:27] VITALS: BP 150/75; PULSE 69; RESP 21; O2SAT 96
== END 2023-05-23 18:52 | disposition home or self-care (01) ==
LOC: ED 13:32
DX: N39.0 Urinary tract infection, site not specified (principal); R53.1 Weakness; R51.9 Headache, unspecified; I10 Essential (primary) hypertension; E11.42 Type 2 diabetes mellitus with diabetic polyneuropathy; E78.5 Hyperlipidemia, unspecified; Z79.85 Long-term (current) use of injectable non-insulin antidiabetic drugs; Z79.84 Long term (current) use of oral hypoglycemic drugs; Z79.899 Other long term (current) drug therapy; Z20.828 Contact with and (suspected) exposure to other viral communicable diseases
CPT/HCPCS: 0241U; 36000; 36415; 70450; 80053; 81001; 83735; 83880; 84436; 84443; 84484; 85025; 87086; 93005; 93041; 94760; 96365; 96372; 96374; 96375; 99285; 87077; 87186; J0696; J1200; J1956

== ENCOUNTER 2023-07-11 12:48 | Emergency (ER) | payer MEDICARE ==
--- NOTE | 2023-07-11 13:07 | ERPHSYRPT ---
- History of Present Illness Time Seen by Provider: 07/11/23 13:07 Source: patient Exam Limitations: no limitations Physician History: This is an 87-year-old white female patient who presents to the emergency department with left anterior knee pain. In April 2023 she had an x-ray of the same knee without any evidence of any acute fracture or dislocation. Patient states that her left knee was "acting up" and she was feeling more pain in this knee. She has been diagnosed with arthritis in that knee. She called her primary care provider and could not be seen for another 1-1/2 weeks. She states that she could not wait that long to be evaluated and therefore she came to the emergency department. She stated she did fall 2 weeks ago. She stated her left knee just "gave out". Patient denies chest pain. She denies shortness of breath. Patient is concerned about a blood clot in that lower extremity. Patient has a history of hypertension, hyperlipidemia, hypothyroidism, peripheral neuropathy and arthritis. Method of Injury: fell (2 weeks ago) Occurred: other (2 weeks ago) Quality: aching Severity of Pain-Max: mild (To moderate) Severity of Pain-Current: mild (To moderate) Lower Extremities Pain: knee: left Modifying Factors: Improves With: movement Associated Symptoms: none Allergies/Adverse Reactions: Penicillins Allergy (Severe, Verified 07/11/23 13:22) Hives cephalexin monohydrate [From Keflex] Allergy (Mild, Verified 07/11/23 13:22) Nausea nausea ciprofloxacin [From Cipro] Allergy (Mild, Verified 07/11/23 13:22) Nausea Tolerates levaquin without complications erythromycin base Allergy (Mild, Verified 07/11/23 13:22) Nausea nausea Sulfa (Sulfonamide Antibiotics) Allergy (Mild, Verified 07/11/23 13:22) Nausea nausea Home Medications: Acetaminophen [Pain Reliever] 650 mg PO Q4HPRN PRN 06/29/17 [History] Ascorbic Acid 500 mg [Vitamin C 500 MG] 500 mg PO DAILY 06/29/17 [History] Atorvastatin Calcium [Lipitor] 10 mg PO HS 06/29/17 [History] Ferrous Sulfate 325 mg PO BID 06/29/17 [History] Folic Acid 1 mg PO DAILY 06/29/17 [History] Levothyroxine Sodium 25 Mcg [Synthroid 25 Mcg] 25 mcg PO DAILY 06/29/17 [History] [place]-3 Fatty Acids/Fish Oil [Fish Oil 1,200 mg Softgel] 1 each PO TID 06/29/17 [History] Sennosides/Docusate Sodium [Docusate Sodium-Senna Tablet] 2 each PO HS 06/29/17 [History] Torsemide [Demadex] 10 mg PO DAILY 06/29/17 [History] lisinopriL [Lisinopril] 20 mg PO DAILY 06/29/17 [History] Aspirin EC 81 mg [Ecotrin 81 mg] 81 mg PO DAILY 06/30/17 [History] Buprenorphine 1 each TD UD 07/11/23 [History] Hx Tetanus, Diphtheria Vaccination/Date Given: Yes Hx Influenza Vaccination/Date Given: Yes Hx Pneumococcal Vaccination/Date Given: Yes Travel Risk - International Travel Have you traveled outside of the country in past 3 weeks: No - Coronavirus Screening Are you exhibiting any of the following symptoms?: No Close contact with a COVID-19 positive Pt in past 14-21 Days: No - Vaccine Status Have you recieved a Covid-19 vaccination: Yes Residential Advisor: Moderna - Vaccination Dates Date of 2cond Vaccination (if applicable): 2020 - Review of Systems Constitutional: No Symptoms Eyes: No Symptoms Ears, Nose, & Throat: No Symptoms Respiratory: No Symptoms Cardiac: No Symptoms Abdominal/Gastrointestinal: No Symptoms Genitourinary Symptoms: No Symptoms Musculoskeletal: Fall (2 weeks ago. Left knee pain) Skin: No Symptoms Neurological: No Symptoms Psychological: No Symptoms Endocrine: No Symptoms Hematologic/Lymphatic: No Symptoms Immunological/Allergic: No Symptoms All Other Systems: Reviewed and Negative - Past Medical History Pertinent Past Medical History: Yes Neurological History: Peripheral Neuropathy ENT History: Cataracts Cardiac History: High Cholesterol, Hypertension Respiratory History: No Pertinent History Endocrine Medical History: Diabetes Type II Musculoskeletal History: Arthritis GI Medical History: No Pertinent History History: No Pertinent History Psycho-Social History: No Pertinent History Female Reproductive Disorders: No Pertinent History Other Medical History: Anemia, back pain- arthritis - Past Surgical History Past Surgical History: Yes Neuro Surgical History: No Pertinent History Cardiac: No Pertinent History Respiratory: No Pertinent History Gastrointestinal: Cholecystectomy Genitourinary: No Pertinent History Musculoskeletal: Joint Replacement Female Surgical History: Hysterectomy Other Surgical History: bladder sling, tot rt knee - Social History Smoking Status: Former smoker Exposure to second hand smoke: No Drug Use: none Patient Lives Alone: No Significant Family History: cancer, diabetes, other (Daughter with DVT during ; Sister breast cancer; Mother Melanoma; Father Diabetes) - Nursing Vital Signs Nursing Vital Signs: Initial Vital Signs Temperature 97.0 F 07/11/23 13:36 Pulse Rate 78 07/11/23 13:36 Respiratory Rate 18 07/11/23 13:36 Blood Pressure 128/78 07/11/23 13:36 O2 Sat by Pulse Oximetry 97 07/11/23 13:36 Pain Scale Pain Intensity 3 - Physical Exam General Appearance: no apparent distress, alert, anxiety Eyes, Ears, Nose, Throat Exam: normal ENT inspection, moist mucous membranes Neck Exam: normal inspection, non-tender, supple, full range of motion Cardiovascular/Respiratory Exam: chest non-tender, no respiratory distress Gastrointestinal/Abdominal Exam: non-tender Back Exam: normal inspection, normal range of motion, No CVA tenderness, No vertebral tenderness Hips Exam: bilateral: non-tender, normal inspection, normal range of motion, no evidence of injury Legs Exam: bilateral leg: non-tender, normal inspection, normal range of motion, no evidence of injury Knees Exam: right knee: non-tender, left knee: normal range of motion, no evidence of injury, soft tissue tenderness (Anteriorly), swelling (Anteriorly) Ankle Exam: bilateral ankle: non-tender, normal inspection, normal range of motion, no evidence of injury Foot Exam: bilateral foot: non-tender, normal inspection, normal range of motion, no evidence of injury Neuro/Tendon Exam: normal sensation, normal motor functions, normal tendon functions, responds to pain, no evidence tendon injury Mental Status Exam: alert, oriented x 3, cooperative Skin Exam: normal color, warm, dry SpO2 Interpretation: normal O2 Delivery: Room Air - Course Nursing assessment & vital signs reviewed: Yes Ordered Tests: Active Orders 24 hr Category Date Time Status KNEE (1 OR 2 VIEW) Stat Exams 07/11/23 13:58 Completed VENOUS UNILAT/LIMITED EXTREMIT [US] Stat Exams 07/11/23 14:40 Ordered D-DIMER QUANTITATIVE Stat Lab 07/11/23 13:57 Completed Lab/Rad Data: Laboratory Results 07/11/23 Range/Units 13:57 D-Dimer 0.97 H* (0.0-0.50) mg/L - Progress Progress: unchanged Progress Note: 07/11/23 14:16 This patient's medical issue is 1 of low complexity. The level of complexity in the work-up performed is based on review of the patient's past medical history, review the patient's medication list, review of the patient's drug allergy list, history of present illness and physical findings on examination. The work-up in this patient includes obtaining a D-dimer as a screening test. If this is positive we will order venous Doppler of the left lower extremity. We will also order a x-ray of the left knee since the patient stated that her left knee gave out and she fell injuring the left knee. 07/11/23 15:07 The D-dimer performed was elevated. Therefore we ordered a venous Doppler of the left lower extremity. The x-ray of the left knee shows no acute fracture or dislocation. This film was interpreted by the radiologist and I reviewed the impression. The venous Doppler of the left lower extremity shows no DVT. There is a Foster's cyst present. Counseled pt/family regarding: diagnosis, need for follow-up, rad results Medical Desision Making - Independent Historian Additional History obtained from: Spouse - Diagnostic Testing Diagnostic test were ordered, analyzed, and reviewed by me: Yes Radiological Interpretation: Reviewed by me, Teleradiologist Report - Risk of complications Low Risk: Low risk of morbidity from additional dx testing or treatment - Departure Departure Disposition: Home Clinical Impression: Left anterior knee pain Condition: Stable Critical Care Time: No Referrals: TORSTEN VILLASEÑOR MD [Primary Care Provider] - Follow up/PCP as directed Additional Instructions: Use Tylenol and ibuprofen if there are no contraindications for pain control. May also apply ice to the left knee. Follow-up with your primary care provider for further evaluation management. May also follow-up in the [facility] orthopedic clinic Sunday through Sunday 8 AM to 10 AM. You do not need an appointment to be seen.
[2023-07-11 13:37] VITALS: RESP 18; TEMP 97
--- NOTE | 2023-07-11 14:30 | XRAY ---
Indication: Pain following fall. Comparison: None 2 portable views left knee demonstrates osteopenia, mild/moderate tricompartmental degenerative changes greatest patellofemoral compartment, minimal scattered vascular calcifications, and tiny fabella. No other bony, articular, or soft tissue abnormalities.
--- NOTE | 2023-07-11 15:18 | XRAY ---
Indication: Pain and swelling. Two-dimensional sonogram and color Doppler imaging of the major venous vessels of the left leg performed. Comparison: May 16, 2023 Again no thrombus seen in the examined deep venous vessels of the left leg including greater saphenous vein. Veins demonstrate normal compressibility. Venous waveforms are normal with and without augmentation. Again incidental Foster's cyst today measuring 2.8 x 1.9 x 4.7 cm. Impression: Left leg continues to be negative for DVT. Again incidental Foster's cyst.
[2023-07-11 15:28] VITALS: BP 118/57; PULSE 60; O2SAT 98
== END 2023-07-11 15:31 | disposition home or self-care (01) ==
LOC: ED 12:48
DX: M25.562 Pain in left knee (principal); I10 Essential (primary) hypertension; E78.5 Hyperlipidemia, unspecified; E11.42 Type 2 diabetes mellitus with diabetic polyneuropathy; Z79.891 Long term (current) use of opiate analgesic; Z79.899 Other long term (current) drug therapy
CPT/HCPCS: 36415; 73560; 85379; 93971; 99283

== ENCOUNTER 2024-04-30 08:41 | Day surgery (SDC) | payer MEDICARE ==
[2024-04-30] MEDS ORDERED: Xylocaine-Mpf 2% 5 Ml Vial IJ ONE (08:42)
[2024-04-30] MEDS ORDERED: Zofran 4 MG/2 ML VIAL ONE (10:45)
[2024-04-30] MEDS ORDERED: DIPRIVAN 200 MG/20 ML IV ONE (10:45)
--- NOTE | 2024-04-30 11:49 | XRAY ---
11 seconds of fluoroscopy was used in surgery for a bilateral L4-S1 MBB.
--- NOTE | 2024-04-30 11:52 | XRAY ---
Indication: Bilateral L4-S1 MBB. Intraoperative fluoroscopy provided for 11 seconds. Single digital spot image submitted for interpretation demonstrates posterior needle tips projecting over expected left and right L4-S1 nerve roots. Correlate with intraoperative findings/report.
[2024-04-30] MEDS ORDERED: Lactated Ringers 1,000 ML IV ONE (14:32)
== END 2024-04-30 11:15 ==
LOC: SDC-PAIN 08:41
PROVIDERS: ATTEND Psychiatry & Neurology Pain Medicine
DX: M47.816 Spondylosis without myelopathy or radiculopathy, lumbar region (principal); E11.9 Type 2 diabetes mellitus without complications
CPT/HCPCS: 64493; 64494; 72020; 77002; 82947; J2405; J2704

== ENCOUNTER 2024-05-21 08:55 | Day surgery (SDC) | payer MEDICARE ==
[2024-05-21] MEDS ORDERED: Depo-Medrol 40 MG/ML IM ONE (08:56)
[2024-05-21] MEDS ORDERED: BUPIVACAINE 0.5% VIAL IJ ONE (08:56)
[2024-05-21] MEDS ORDERED: Zofran 4 MG/2 ML VIAL ONE (09:17)
[2024-05-21] MEDS ORDERED: DIPRIVAN 200 MG/20 ML IV ONE (10:19)
[2024-05-21] MEDS ORDERED: Lactated Ringers 1,000 ML IV ONE (11:57)
--- NOTE | 2024-05-21 12:57 | XRAY ---
Indication: Bilateral SI joint injection. Intraoperative fluoroscopy provided for 16 seconds. 2 digital spot image submitted for interpretation demonstrates posterior needle tips projecting over the expected left and right SI joints. Small amount of contrast injected for needle tip placement. Correlate with intraoperative findings/report.
--- NOTE | 2024-05-21 14:38 | XRAY ---
16 seconds of fluoroscopy was used in surgery for bilateral SI joint injections.
== END 2024-05-21 10:50 | disposition home or self-care (01) ==
LOC: SDC-PAIN 08:55
PROVIDERS: ATTEND Psychiatry & Neurology Pain Medicine
DX: M46.1 Sacroiliitis, not elsewhere classified (principal); E11.9 Type 2 diabetes mellitus without complications
CPT/HCPCS: 01992; 27096; 72202; 77002; 82947; 99100; G0260; J2405; J2704; Q9966

== ENCOUNTER 2024-06-16 17:43 | Emergency (ER) | payer MEDICARE, OTHER ==
[2024-06-16 18:08] VITALS: RESP 18; TEMP 97.8
--- NOTE | 2024-06-16 18:18 | ERPHSYRPT ---
- History of Present Illness Source: patient Exam Limitations: no limitations Patient Subjective Stated Complaint: pt states that she was bending down and fell over. pt states pain to left shoulder and left hip Triage Nursing Assessment: pt ambulated into the er with walker; pt is axo x4; c/o fall; pt states 2/10 pain to left hip and left shoulder; no bruising or deformity to left shoulder; no bruising or deformity present to left hip; no shortening or rotation present to LLE; skin PDW; no respiratory distress persent; hypertensive Occurred: just prior to arrival Reason for Fall: slipped Injuries/Pain Location: upper extremity, lower extremity (Left shoulder and left hip mild discomfort. Normal range of motion. No deformity. No skin breakdown. Normal distal neurovascular functions.) Loss of Consciousness: no loss of consciousness Quality: aching Severity of Pain-Max: mild Severity of Pain-Current: mild Modifying Factors: Improves With: nothing Associated Symptoms (Fall): No abdominal pain, No back pain, No confusion, No dizziness, No extremity injury, No headache Hx Tetanus, Diphtheria Vaccination/Date Given: Yes Hx Influenza Vaccination/Date Given: Yes Hx Pneumococcal Vaccination/Date Given: Yes Immunizations Up to Date: No <IRMA ASHTON - Last Filed: 06/16/24 18:42> <JUAN CARLOS PEREZ - Last Filed: 06/16/24 20:22> - History of Present Illness Time Seen by Provider: 06/16/24 17:45 Physician History: Patient states that while doing laundry she gently fell because she could not hold herself and landed on the left side. Patient says that I did not hit it hard at all. I have mild discomfort in the left shoulder and the left hip. No other pain or injury. Patient says that I did not want to come but my family with me,. Patient does not want any pain medicine. Pain is only 2 out of 10. No deformity. No distress or anything. (IRMA ASHTON) Allergies/Adverse Reactions: Penicillins Allergy (Severe, Verified 06/16/24 17:57) Hives cephalexin monohydrate [From Keflex] Adverse Reaction (Mild, Verified 06/16/24 17:57) Nausea nausea ciprofloxacin [From Cipro] Adverse Reaction (Mild, Verified 06/16/24 17:57) Nausea Tolerates levaquin without complications erythromycin base Adverse Reaction (Mild, Verified 06/16/24 17:57) Nausea nausea Sulfa (Sulfonamide Antibiotics) Adverse Reaction (Mild, Verified 06/16/24 17:57) Nausea nausea Home Medications: Folic Acid 1 mg PO DAILY 06/29/17 [History] Levothyroxine Sodium 25 Mcg [Synthroid 25 Mcg] 25 mcg PO DAILY 06/29/17 [History] Garrison-3 Fatty Acids/Fish Oil [Fish Oil 1,200 mg Softgel] 2,000 mg PO DAILY 06/29/17 [History] Sennosides/Docusate Sodium [Docusate Sodium-Senna Tablet] 2 each PO HS 06/29/17 [History] Aspirin EC 81 mg [Ecotrin 81 mg] 81 mg PO UD 06/30/17 [History] Calcium Carbonate/Vitamin D3 [Calcium 1,000 + D3 Caplet] 1,200 mg PO DAILY 06/06/24 [History] Insulin Glargine [Lantus Insulin] 20 unit SQ HS 06/06/24 [History] Insulin Lispro [Humalog] 10 unit SQ BID 06/06/24 [History] Carvedilol 3.125 mg [Coreg 3.125 MG] 3.125 mg PO BID 06/09/24 [History] Furosemide 40 mg [Lasix 40 MG] 40 mg PO DAILY 06/09/24 [History] Omeprazole 20 mg PO UD 06/09/24 [History] Travel Risk - International Travel Have you traveled outside of the country in past 3 weeks: No - Emerging Infectious Disease Are you exhibiting symptoms associated with any current EIDs: No <IRMA ASHTON - Last Filed: 06/16/24 18:42> - Review of Systems Constitutional: No Fever, No Chills Eyes: No Symptoms Ears, Nose, & Throat: No Symptoms Respiratory: No Cough, No Dyspnea Cardiac: No Chest Pain, No Edema, No Syncope Abdominal/Gastrointestinal: No Abdominal Pain, No Nausea, No Vomiting, No Diarrhea Genitourinary Symptoms: No Dysuria Musculoskeletal: Other (Left shoulder and left hip mild discomfort. Normal range of motion. No deformity. No skin breakdown. Normal distal neurovascular functions.), No Back Pain, No Neck Pain Skin: No Rash Neurological: No Dizziness, No Focal Weakness, No Sensory Changes Psychological: No Symptoms Endocrine: No Symptoms All Other Systems: Reviewed and Negative <IRMA ASHTON - Last Filed: 06/16/24 18:42> - Past Medical History Pertinent Past Medical History: Yes Neurological History: Peripheral Neuropathy ENT History: Cataracts Cardiac History: High Cholesterol, Hypertension Respiratory History: No Pertinent History Endocrine Medical History: Diabetes Type II Musculoskeletal History: Arthritis GI Medical History: No Pertinent History History: No Pertinent History Psycho-Social History: No Pertinent History Female Reproductive Disorders: No Pertinent History Other Medical History: Anemia, back pain- arthritis - Past Surgical History Past Surgical History: Yes Neuro Surgical History: No Pertinent History Cardiac: No Pertinent History Respiratory: No Pertinent History Gastrointestinal: Cholecystectomy Genitourinary: No Pertinent History Musculoskeletal: Joint Replacement Female Surgical History: Hysterectomy Other Surgical History: bladder sling, tot rt knee Significant Family History: cancer, diabetes, other (Daughter with DVT during p regnancy; Sister breast cancer; Mother Melanoma; Father Diabetes) - Social History Smoking Status: Former smoker Exposure to second hand smoke: No Drug Use: none Patient Lives Alone: No - Social Determinants of Health Will the patient participate in the screening: Yes Do you worry about a steady place to live?: No Do you have any problems with any of the following?: No known problems In the past 12 months,have you had to go without utilities?: No Transportation Issues: No Has anyone in your support network made you feel unsafe?: No Have you or anyone in your house had to go without enough: No <IRMA ASHTON - Last Filed: 06/16/24 18:42> - [place] Coma Score Best Eye Response (Jennie): (4) open spontaneously Best Verbal Response ([place]): (5) oriented Best Motor Response ([place]): (6) obeys commands Jennie Total: 15 - Physical Exam General Appearance: no apparent distress, alert Head Injury: no evidence of injury Eye Exam: PERRL/EOMI ENT Exam: airway nml Neck Exam: trachea midline, full range of motion, normal alignment, normal inspection, No focal neuro deficit, No tenderness Respiratory/Chest Exam: normal breath sounds, No chest tenderness, No respiratory distress Cardiovascular Exam: normal heart sounds, regular rate/rhythm Gastrointestinal Exam: soft, No tenderness, No distention, No guarding, No ecchymosis Back Exam: normal inspection, No vertebral tenderness Extremity Exam: normal inspection, normal range of motion, pelvis stable, other (Left shoulder and left hip mild discomfort. Normal range of motion. No deformity. No skin breakdown. Normal distal neurovascular functions.), No deformities Neurologic Exam: alert, oriented x 3, cooperative, sensation nml, No motor deficits Skin Exam: normal color, warm, dry SpO2 Interpretation: normal SpO2: 97 O2 Delivery: Room Air <IRMA ASHTON - Last Filed: 06/16/24 18:42> - Nursing Vital Signs Nursing Vital Signs: Initial Vital Signs Temperature 97.8 F 06/16/24 17:50 Pulse Rate 65 06/16/24 17:50 Respiratory Rate 18 06/16/24 17:50 Blood Pressure 164/71 06/16/24 17:50 O2 Sat by Pulse Oximetry 97 06/16/24 17:50 Pain Scale Pain Intensity 2 Ordered Tests: Active Orders 24 hr Category Date Time Status HIP UNI (2V) INCL PEL IF DONE Stat Exams 06/16/24 18:20 Taken SHOULDER Stat Exams 06/16/24 18:20 Taken <IRMA ASHTON - Last Filed: 06/16/24 18:42> - Progress Counseled pt/family regarding: diagnosis, need for follow-up, rad results <JUAN CARLOS PEREZ - Last Filed: 06/16/24 20:22> - Progress Progress Note: 06/16/24 18:42 1842 : Waiting for x-rays to be done. Care of the patient will be transferred to Dr. Perez at 7 PM (IRMA ASHTON) 06/16/24 20:20 Patient reexamined. Patient pain left shoulder and left hip still only a 2 out of 10 without addition of any type of pain medication. I interpreted the preliminary reports of both the left shoulder x-ray and left hip x-ray: Left shoulder x-ray shows no acute fracture or dislocation. Left hip x-ray shows no acute fracture or dislocation. There are chronic changes noted. (JUAN CARLOS PEREZ) Medical Desision Making - Independent Historian Additional History obtained from: Family - Diagnostic Testing Diagnostic test were ordered, analyzed, and reviewed by me: Yes Radiological Interpretation: Interpreted by me - Risk of complications Low Risk: Low risk of morbidity from additional dx testing or treatment <JUAN CARLOS PEREZ - Last Filed: 06/16/24 20:22> - Departure Departure Disposition: Home <IRMA ASHTON - Last Filed: 06/16/24 18:42> - Departure Critical Care Time: No <JUAN CARLOS PEREZ - Last Filed: 06/16/24 20:22> - Departure Clinical Impression: Fall with no significant injury Condition: Stable Referrals: MARYANN CORDERO DO [Primary Care Provider] - Follow up/PCP as directed Additional Instructions: Call your primary care provider tomorrow, 06/17/2024 to make arrangements for follow-up appointment to be seen in the next 3 to 5 days. If there are no contraindications, use Tylenol and ibuprofen for pain control.
[2024-06-16 22:07] VITALS: BP 137/63; PULSE 62; O2SAT 95
--- NOTE | 2024-06-17 08:53 | XRAY ---
Indication: Pain following fall. Comparison: None 3 view left shoulder demonstrates osteopenia, moderate acromioclavicular/glenohumeral degenerative changes, mild multilevel cervical thoracic Genter spondylosis, and left upper arm continuous glucose monitor. No other bony, articular, or soft tissue abnormalities.
--- NOTE | 2024-06-17 08:55 | XRAY ---
Indication: Pain following fall. Comparison: None 2 view left hip demonstrates osteopenia, mild SI joint degenerative changes, and small spurring greater trochanter. No other bony, articular, or soft tissue abnormalities.
== END 2024-06-16 21:58 | disposition home or self-care (01) ==
LOC: ED 17:43
DX: M25.512 Pain in left shoulder (principal); M25.552 Pain in left hip; W19.XXXA Unspecified fall, initial encounter; Z79.899 Other long term (current) drug therapy
CPT/HCPCS: 73030; 73502; 99283

== ENCOUNTER 2024-11-20 08:24 | Day surgery (SDC) | payer MEDICARE ==
[2024-11-20] MEDS ORDERED: BUPIVACAINE 0.5% VIAL IJ ONE (08:25)
[2024-11-20] MEDS ORDERED: methylPREDNISolone acetate IM ONE (08:25)
[2024-11-20] MEDS ORDERED: propofoL IV ONE (10:07)
--- NOTE | 2024-11-20 21:07 | XRAY ---
Indication: Bilateral SI joint injection. Intraoperative fluoroscopy provided for 19 seconds. 2 digital spot image submitted for interpretation demonstrates posterior needle tips projecting over expected left and right SI joints. Small amount of contrast injected for needle tip basement. Correlate with intraoperative findings/report.
--- NOTE | 2024-11-20 21:52 | XRAY ---
19 seconds of fluoroscopy was used in surgery for a bilateral sacroiliac joint injection.
== END 2024-11-20 10:33 | disposition home or self-care (01) ==
LOC: SDC-PAIN 08:24
PROVIDERS: ATTEND Psychiatry & Neurology Pain Medicine
DX: M46.1 Sacroiliitis, not elsewhere classified (principal); E11.9 Type 2 diabetes mellitus without complications
CPT/HCPCS: 27096; 72202; 77002; 82947; 99100; J1010; J2704